=== PATIENT | male | born 1995 | race Caucasian/White ===

== ENCOUNTER 2019-10-14 14:59 | Emergency (ER) | payer SELFPAY ==
[~2019-10-14] VITALS: Ht 177.8 cm; Wt 64.2 kg
[2019-10-14 15:02] VITALS: BP 135/81
--- NOTE | 2019-10-14 17:18 | NUR ---
CALLED FOR ROOM, NO ANSWER
--- NOTE | 2019-10-14 17:34 | NUR ---
APPLICATION PACKAGING SPECIALIST: PT TO ROOM FROM [facility]
--- NOTE | 2019-10-14 17:46 | NUR ---
PT HAS CO OF SOB FOR 2 WEEKS, DENIES CP. PT IS DRUG USER, NOT IV, METH AND HEROIN. LOOKING FOR MEDICAL CLEARANCE TO GO TO [facility], HAS BEEN USING SINCE 16. PT STATES SOB COMES AND GOES, MORE AFTER USING DRUGS. PT NOT IN ANY DISTRESS, RESTING ON GURNEY. APPROPIATE. MOTHER AT BEDSIDE.
[2019-10-14 18:23] LABS: BASOPHILS # (AUTO) 0.04 x10^3/uL (0-0.1); BASOPHILS % (AUTO) 0 % (0-1); EOSINOPHILS # (AUTO) 0.04 x10^3/uL (0-0.4); EOSINOPHILS % (AUTO) 0 % (1-7); LYMPHOCYTES # (AUTO) 1.97 x10^3/uL (1-3.4); LYMPHOCYTES % (AUTO) 18 % (22-44); MD NO; MEAN CORPUSCULAR HEMOGLOBIN 33.3 pg (27.5-34.5); MEAN CORPUSCULAR HGB CONC 34.1 g/dL (33.2-36.2); MEAN CORPUSCULAR VOLUME 97.6 fL (81-97); MEAN PLATELET VOLUME 7.9 fL (7.4-10.4); MONOCYTES # (AUTO) 0.33 x10^3/uL (0.2-0.8); MONOCYTES % (AUTO) 3 % (2-9); NEUTROPHILS # (AUTO) 8.54 x10^3/uL (1.8-6.8); NEUTROPHILS % (AUTO) 78 % (42-75); PLATELET COUNT 332 x10^3/uL (130-400); RED BLOOD COUNT 4.73 x10^6/uL (4.38-5.82); RED CELL DISTRIBUTION WIDTH 12.6 % (9.4-14.8)
[2019-10-14 18:29] LABS: ALBUMIN 4.1 g/dL (3.4-5.0); ANION GAP 6 mmol/L (5-15); CALCIUM 8.6 mg/dL (8.5-10.1); CHLORIDE 109 mmol/L (98-107); CREATININE 0.94 mg/dL (0.7-1.3)
[2019-10-14 18:33] LABS: TROPONIN I < 0.015 ng/mL (0.000-0.045)
--- NOTE | 2019-10-14 19:07 | NUR ---
PT RESTING WATCHING TV. NO NEEDS AT THIS TIME. WAITING FOR FURTHER RESULTS
--- NOTE | 2019-10-14 19:52 | NUR ---
TASK RN: Patient/Caregiver given discharge instructions and they have confirmed that they understand the instructions. Patient ambulatory with steady gait.
== END 2019-10-14 19:54 | disposition home or self-care (01) ==
LOC: ED 19:04
DX: R06.00 Dyspnea, unspecified (principal); F17.200 Nicotine dependence, unspecified, uncomplicated
CPT/HCPCS: 36415; 71046; 80048; 82040; 84484; 85025; 85379; 93005; 99284

== ENCOUNTER 2019-10-22 16:30 | Emergency (ER) | payer SELFPAY ==
[~2019-10-22] VITALS: Ht 177.8 cm; Wt 67.3 kg
--- NOTE | 2019-10-22 17:12 | NUR ---
AUTOMATION QTP TESTER: PT AMBULATORY TO ROOM FROM LOBBY
[2019-10-22 17:28] VITALS: BP 119/92
--- NOTE | 2019-10-22 17:28 | NUR ---
FIRST CONTACT WITH PT. PT C/O CHEST DISCOMFORT "IT FEELS LIKE I HAVE TO BURP AND IT FEELS LIKE ITS GOING TO POP, ALSO THE LEFT SIDE OF MY BODY FEET NUMB EARLIER" PT'S AOX4. RESPS EVEN AND UNLABORED. SINUS TACHY RATE 110'S ON STUDENT FINANCE ADVISOR AT THIS TIME. PT DENIES N/V/D. ALL MONITORS IN PLACE. CALL LIGHT WITHIN REACH.
--- NOTE | 2019-10-22 18:12 | NUR ---
Patient given discharge instructions and they have confirmed that they understand the instructions. Patient ambulatory with steady gait.
== END 2019-10-22 18:13 | disposition home or self-care (01) ==
LOC: ED 17:34
DX: R07.89 Other chest pain (principal); F17.200 Nicotine dependence, unspecified, uncomplicated
CPT/HCPCS: 93005; 99283

== ENCOUNTER 2019-10-26 09:30 | Emergency (ER) | payer OTHER ==
[~2019-10-26] VITALS: Ht 177.8 cm; Wt 66.7 kg
--- NOTE | 2019-10-26 09:58 | NUR ---
PT CAME IN CO OF CHEST PAIN. "FEELS LIKE SOMETHING IS GOING TO POP IN MY CHEST". PT STATES HE USED METH AND HEROIN ON WEDNESDAY. HE ALSO STATES THE VIDEO TAPE TRANSFERRER IS HINDERING HIS ABILITY TO BREATH. PT IS ANXIOUS AND KEEPS REMOVING PULSE OX AND CARDIAC LEADS. BLANKET PROVIDED. CALL LIGHT WITHIN REACH
--- NOTE | 2019-10-26 10:23 | NUR ---
ADINA EXPLAINED TO THE PT MUTIPLE TIMES THAT THE REVENUE TAX SPECIALIST IS SO WE CAN MONITOR HIS HEART BUT HE THINKS ITS PREVENTING HIM FROM BREATHING CORRECTLY AND HE TOOK THE LEADS OFF
[2019-10-26] MEDS ORDERED: ASPIRIN 81 MG TABLET CHEW PO ONE (11:00)
[2019-10-26] MEDS ORDERED: ASPIRIN 81 MG TABLET CHEW ONE (11:08)
[2019-10-26 11:16] LABS: BASOPHILS # (AUTO) 0.07 x10^3/uL (0-0.1); BASOPHILS % (AUTO) 1 % (0-1); EOSINOPHILS # (AUTO) 0.03 x10^3/uL (0-0.4); EOSINOPHILS % (AUTO) 0 % (1-7); LYMPHOCYTES # (AUTO) 1.96 x10^3/uL (1-3.4); LYMPHOCYTES % (AUTO) 18 % (22-44); MD NO; MEAN CORPUSCULAR HEMOGLOBIN 33.2 pg (27.5-34.5); MEAN CORPUSCULAR HGB CONC 33.9 g/dL (33.2-36.2); MEAN CORPUSCULAR VOLUME 97.9 fL (81-97); MEAN PLATELET VOLUME 7.4 fL (7.4-10.4); MONOCYTES % (AUTO) 6 % (2-9); NEUTROPHILS # (AUTO) 8.16 x10^3/uL (1.8-6.8); NEUTROPHILS % (AUTO) 75 % (42-75); PLATELET COUNT 338 x10^3/uL (130-400); RED CELL DISTRIBUTION WIDTH 12.8 % (9.4-14.8)
[2019-10-26 11:26] LABS: ALBUMIN 4.1 g/dL (3.4-5.0); ANION GAP 6 mmol/L (5-15); CALCIUM 8.6 mg/dL (8.5-10.1); CHLORIDE 106 mmol/L (98-107); CREATININE 0.83 mg/dL (0.7-1.3)
[2019-10-26 11:30] LABS: TROPONIN I < 0.015 ng/mL (0.000-0.045)
[2019-10-26 12:56] VITALS: BP 132/68
--- NOTE | 2019-10-26 13:00 | NUR ---
TASK RN: Patient/Caregiver given discharge instructions and they have confirmed that they understand the instructions. Patient ambulatory with steady gait.
== END 2019-10-26 13:13 | disposition home or self-care (01) ==
LOC: ED 13:07
DX: R07.89 Other chest pain (principal); F17.200 Nicotine dependence, unspecified, uncomplicated
CPT/HCPCS: 36415; 71045; 80048; 82040; 84484; 85025; 93005; 99284

== ENCOUNTER 2019-11-14 02:53 | Emergency (ER) | payer MEDICAID ==
[2019-11-14 02:54] VITALS: BP 142/90
[2019-11-14] MEDS ORDERED: DEXAMETHASONE 4 MG TABLET ONE (03:21)
[2019-11-14] MEDS ORDERED: IBUPROFEN 600 MG TABLET ONE (03:22)
--- NOTE | 2019-11-14 03:25 | NUR ---
PT MEDICATED PER DEC. PT AMBULATES TO XRAY WITH STEADY GAIT.
[2019-11-14] MEDS ORDERED: DEXAMETHASONE 4 MG TABLET PO ONE (03:30)
[2019-11-14] MEDS ORDERED: IBUPROFEN 600 MG TABLET PO ONE (03:30)
== END 2019-11-14 04:29 | disposition home or self-care (01) ==
LOC: ED 04:14
DX: J06.9 Acute upper respiratory infection, unspecified (principal); F17.210 Nicotine dependence, cigarettes, uncomplicated; Z72.9 Problem related to lifestyle, unspecified
CPT/HCPCS: 71046; 87081; 87880; 99284

== ENCOUNTER 2019-11-20 20:40 | Emergency (ER) | payer MEDICAID ==
[~2019-11-20] VITALS: Ht 177.8 cm; Wt 73.3 kg
[2019-11-20 20:48] VITALS: BP 150/81
--- NOTE | 2019-11-20 22:50 | NUR ---
pt called to room from lobby
--- NOTE | 2019-11-20 22:58 | NUR ---
PT NOTED AMBULATING STEADILY TO ROOM FROM LOBBY. NAD NOTED.
[2019-11-20] MEDS ORDERED: AZITHROMYCIN 250 MG TABLET ONE (23:25)
[2019-11-20] MEDS ORDERED: AZITHROMYCIN 500 MG TABLET PO ONE (23:30)
--- NOTE | 2019-11-20 23:50 | NUR ---
NO S/S OF ABX RXN NOTED. DC EDUCATION PROVIDED, PT DEMONSTRATES UNDERSTANDING. PT AMBULATED STEADILY TO DC WITH RN AND FRIEND.
== END 2019-11-20 23:54 | disposition home or self-care (01) ==
LOC: ED 23:40
DX: J18.9 Pneumonia, unspecified organism (principal); F17.200 Nicotine dependence, unspecified, uncomplicated
CPT/HCPCS: 71046; 93005; 99283